=== PATIENT | male | born 1955 | race Caucasian/White ===

== ENCOUNTER 2024-03-08 13:30 | Outpatient (CLI) | payer MEDICARE, SELFPAY | END 2024-03-08 13:31 | disposition home or self-care (01) | LOC: NFLDREF 03-12 17:07 | PROVIDERS: PCP Physician Assistant Medical; Referring Provider Physician Assistant Medical; Visit Provider Physician Assistant Medical | DX: I10 Essential (primary) hypertension (principal); E78.2 Mixed hyperlipidemia; Z13.29 Encounter for screening for other suspected endocrine disorder; Z12.5 Encounter for screening for malignant neoplasm of prostate | CPT/HCPCS: 80053; 80061; 84443; G0103 ==

== ENCOUNTER 2025-03-11 07:54 | Outpatient (CLI) | payer MEDICARE, SELFPAY | END 2025-03-11 07:55 | disposition home or self-care (01) | LOC: NFLDREF 03-16 03:21 | PROVIDERS: PCP Physician Assistant Medical; Referring Provider Physician Assistant Medical; Visit Provider Physician Assistant Medical | DX: E78.2 Mixed hyperlipidemia (principal); K21.9 Gastro-esophageal reflux disease without esophagitis; F41.1 Generalized anxiety disorder; I10 Essential (primary) hypertension; Z12.5 Encounter for screening for malignant neoplasm of prostate | CPT/HCPCS: 80053; 80061; 84443; G0103 ==